=== PATIENT | female | born 1990 | race Caucasian/White ===

== ENCOUNTER 2019-11-11 16:33 | Emergency (ER) | payer MEDICAID ==
[~2019-11-11] VITALS: Ht 160 cm; Wt 81.0 kg
[~2019-11-11 16:33] MED LIST: DIPH25TA89 PO; GENT5DRO4 EACHEYE; ONDA4TAB6 PO
[2019-11-11 16:39] VITALS: BP 143/89
[2019-11-11 18:24] LABS: URINE HCG NEGATIVE (NEG)
[2019-11-11 18:25] LABS: CLARITY,URINE CLEAR (Clear); COLOR,URINE YELLOW (Yellow); GLUCOSE, URINE NEGATIVE (Neg); KETONES,URINE 15 mg/dl (Neg); LEUKOCYTE ESTERASE ,URINE NEGATIVE (Neg); NITRITES, URINE NEGATIVE (Neg); OCCULT BLOOD,URINE TRACE-LYSED (Neg); PROTEIN,URINE NEGATIVE (Neg); UROBILINOGEN,URINE 0.2 E.U/dL (0.2-1.0)
[2019-11-11 18:31] LABS: BACTERIA,URINE FEW /HPF (Neg); RBC,URINE 0-2 /HPF (0-2); SQUAMOUS EPITHELIAL CELL,UR FEW /LPF (FEW); UA COLLECTION TYPE CLN CATCH MIDSTREAM; WBC,URINE 0-4 /HPF (0-4)
== END 2019-11-11 20:54 | disposition home or self-care (01) ==
LOC: ER 16:33
DX: N93.8 Other specified abnormal uterine and vaginal bleeding (principal); N91.2 Amenorrhea, unspecified
CPT/HCPCS: 36415; 81001; 81025; 84702; 99283

== ENCOUNTER 2020-01-04 06:08 | Emergency (ER) | payer MEDICAID ==
[~2020-01-04] VITALS: Ht 160 cm; Wt 78.6 kg
[2020-01-04 06:09] VITALS: BP 140/44
[2020-01-04] MEDS ORDERED: CEPH500C5 PO (06:43)
== END 2020-01-04 06:48 | disposition home or self-care (01) ==
LOC: ER 06:08
DX: O26.891 Other specified pregnancy related conditions, first trimester (principal); T16.2XXA Foreign body in left ear, initial encounter; F41.9 Anxiety disorder, unspecified; Z79.2 Long term (current) use of antibiotics; Z79.899 Other long term (current) drug therapy; Z3A.11 11 weeks gestation of pregnancy; X58.XXXA Exposure to other specified factors, initial encounter; Y93.89 Activity, other specified; Y92.89 Other specified places as the place of occurrence of the external cause; Y99.8 Other external cause status
CPT/HCPCS: 99283; 99284

== ENCOUNTER 2025-06-02 11:30 | Outpatient (CLI) | payer MEDICAID ==
[~2025-06-02 11:30] MED LIST changes: +GEN0.3OS EACHEYE; -GENT5DRO4 EACHEYE
--- NOTE | 2025-06-02 17:21 | [facility] CONSULT REPORT ---
[facility] Procedure Note [facility] Procedure Note Consult [facility] Note # Demographics Type of EEG Read: - Routine EEG - video Patient Location: Outpatient First Name: KIKE Last Name: TODD Date of : 1990 Age: 34 Gender: Female Facility: [facility] Time of Initial Page (Waterproof ): 06/02/2025 12:41 Time of Return Call (Waterproof Time): 06/02/2025 12:42 # EEG Interpretation Start Time of EEG Read (Waterproof ): 06/02/2025 13:04 Stop Time of EEG Read (Waterproof ): 06/02/2025 13:25 Duration: 0h 21m Technical Details: - The EEG electrodes were placed using the standard International 10-20 system of electrode placement. Video and an accessory EKG lead were used during the course of this study. - This study was recorded using the [employer] EEG software Indication: Possible seizure # Description Photic Stimulation: NOT Performed Hyperventilation: NOT performed Phases Captured: - awake Symmetry: symmetric Posterior Dominant Rhythm: The record is continuous, of normal amplitude and bilaterally symmetrical. There is a well-developed posterior dominant rhythm at 9-10Hz. There is a moderate amount of diffuse low amplitude 15-25 Hz beta activity and an appropriate amount of 4-7 Hz theta activity during wakefulness. No significant <4 Hz delta activity is present during wakefulness. With drowsiness, there is attenuation of the background alpha activity and a shift to slower frequencies. Amplitude: normal Reactivity: yes Variability: yes Continuity: continuous EKG: NSR # Abnormalities Stimulation: - photic stimulation does NOT cause abnormalities - hyperventilation does NOT cause abnormalities Epileptiform Abnormalities: - NOT present Focal Slowing: no Seizure: - NOT present No push button events # Impression Impression: normal # Clinical Correlation Clinical Correlation: A normal EEG does not exclude nor support the diagnosis of epilepsy. Additional Comments: clinical correlation is recommended # Demographics First Name: KIKE Last Name: TODD Facility: [facility] SHANT STARR MD Jun 02, 2025 17:21
== END 2025-06-02 23:59 | disposition home or self-care (01) ==
LOC: RAD 11:30
PROVIDERS: ATTEND Family Medicine
DX: R56.9 Unspecified convulsions (principal)
CPT/HCPCS: 95816

== ENCOUNTER 2025-08-10 15:12 | Emergency (ER) | payer MEDICAID ==
[~2025-08-10] VITALS: Ht 160 cm; Wt 59.5 kg
--- NOTE | 2025-08-10 15:33 | Physician Documentation ---
Addendum CHIEF COMPLAINT/HPI: The patient is a 34-year-old female who presents with suicidal ideations. She does not have a definite plan but has fantasizing various possibilities. She takes fluvoxamine and naltrexone for OCD, lamotrigine for seizures and tirzepatide for weight loss. REVIEW OF SYSTEMS: Constitutional: Denies chills, fatigue, fever, weight gain or weight loss. HEENT: Denies hearing loss, sinus pressure or visual changes. Respiratory: Denies cough, shortness of breath or wheezing. Cardiovascular: Denies chest pain, pain while walking (claudication), edema or palpitations. Gastrointestinal: Denies abdominal pain, blood in stool, constipation, diarrhea, heartburn, loss of appetite, nausea or vomiting. Genitourinary: Denies painful urination (dysuria), excessive amount of urine (polyuria) or urinary frequency. Metabolic/Endocrine: Denies cold intolerance, heat intolerance, excessive thirst (polydipsia) or excessive hunger (polyphagia). Neurological: Denies dizziness, extremity numbness, extremity weakness, headaches, seizures or tremors. Psychiatric: Patient does suffer from anxiety and depression. Integumentary: Denies breast discharge, breast lump, hives, mole change(s), rash or skin lesion. Musculoskeletal: Denies back pain, joint pain, joint swelling or neck pain. Hematologic: Denies easily bleeding, easily bruises, lymphedema or issues with blood clots. Immunologic: Denies food allergies or seasonal allergies. PHYSICAL EXAMINATION: Vitals and nursing note reviewed. Constitutional: General: Patient is awake, alert, oriented x 4 in no acute distress and well appearing. Speech is clear and lucid. Appearance: Normal appearance. Patient is not ill-appearing, toxic-appearing or diaphoretic. HENT: Head: Normocephalic and atraumatic. Mouth: Mucous membranes are moist. Pharynx: Oropharynx is clear. Eyes: General: No scleral icterus. Extraocular Movements: Extraocular movements intact. Pupils: Pupils are equal, round, and reactive to light. Neck: Supple, no Kernig or Brudzinski sign. Cardiovascular: Rate and Rhythm: Normal rate and regular rhythm. Heart sounds: No murmur heard. Pulmonary: Effort: No respiratory distress. Breath sounds: No wheezing, rhonchi or rales. Abdominal: General: There is no distension. Palpations: There is no fluid wave, hepatomegaly or mass. Tenderness: There is no abdominal tenderness. There is no guarding. Musculoskeletal: General: No swelling or deformity. Skin: Coloration: Skin is not jaundiced. Findings: No erythema or rash. Neurological: Mental Status: Patient is alert. MEDICAL DECISION MAKING: This 34-year-old female presents with suicidal ideations. Departure Disposition: 30 STILL A PATIENT Impression: Primary Impression: Suicidal ideation Condition: Stable Additional Instructions: Transfer orders for [facility]: At this time there is no evidence of an emergent medical condition that would preclude (admission/transfer) to a psychiatric unit via [facility] protocol for further psychiatric, as well as medical evaluation and treatment. At this time I have no reason to believe that transfer via [facility] protocol would have serious medical compromise in the patient's health. MAHNAZ THOMPSON MD Aug 10, 2025 15:33
[2025-08-10] MEDS ORDERED: LAMO100T65 PO (15:49)
[2025-08-10] MEDS ORDERED: FLUV25TA9 PO (15:50)
[2025-08-10] MEDS ORDERED: TIRZ7.5P3 SUBCUT (15:50)
[2025-08-10] MEDS ORDERED: NALT380S2 IM (15:53)
[2025-08-10 15:55] LABS: LEUKOCYTE ESTERASE ,URINE NEGATIVE (Neg); NITRITES, URINE NEGATIVE (Neg); OCCULT BLOOD,URINE MODERATE (Neg); URINE HCG NEGATIVE (NEG)
[2025-08-10 16:02] LABS: UA COLLECTION TYPE CLN CATCH MIDSTREAM
[2025-08-10 16:04] LABS: MUCUS STRANDS FEW /LPF (Neg); SQUAMOUS EPITHELIAL CELL,UR FEW /LPF (FEW)
[2025-08-10 16:05] LABS: MEAN PLATELET VOLUME 8.5 FL (7.4-10.4); RED CELL DISTRIBUTION WIDTH 12.9 % (11.5-14.5)
[2025-08-10 16:09] LABS: URINE AMPHETAMINE SCREEN NEGATIVE (Neg); URINE BARBITUATE SCREEN NEGATIVE (Neg); URINE BENZODIAZEPINES SCREEN NEGATIVE (Neg); URINE CANNABINOID SCREEN POSITIVE (Neg); URINE COCAINE SCREEN NEGATIVE (Neg); URINE METHADONE SCREEN NEGATIVE (Neg); URINE OPIATE SCREEN NEGATIVE (Neg); URINE PHENCYCLIDINE SCREEN NEGATIVE (Neg)
[2025-08-10 16:29] LABS: CREATININE 0.68 MG/DL (0.40-0.90); TOTAL CARBON DIOXIDE 25.1 MMOL/L (24-32); eCRCL 96 ML/MIN; eGFR > 90 ML/MIN
[2025-08-10] MEDS: TIRZEPATIDE 7.5 MG SQ SCH (16:40)
[2025-08-10 16:42] LABS: ETHANOL < 10 MG/DL (<10)
[2025-08-10 19:38] LABS: LEUKOCYTE ESTERASE ,URINE NEGATIVE (Neg); NITRITES, URINE NEGATIVE (Neg); OCCULT BLOOD,URINE NEGATIVE (Neg)
[2025-08-10 19:47] LABS: UA COLLECTION TYPE NON-SPECIFIED
[2025-08-10 20:00] VITALS: TEMP 97.8
[2025-08-11] MEDS: fluvoxamine 25 MG tablet PO SCH ×2 (09:24→09:58)
[2025-08-11] MEDS ORDERED: FLUV50TA10 PO (09:53)
[2025-08-11 10:39] VITALS: BP 121/87; PULSE 80; RESP 16; O2SAT 99
== END 2025-08-11 10:41 | disposition home or self-care (01) ==
LOC: ER 15:13
DX: R45.851 Suicidal ideations (principal); Z20.822 Contact with and (suspected) exposure to COVID-19; Z79.899 Other long term (current) drug therapy
CPT/HCPCS: 36415; 80048; 80305; 80320; 81001; 81003; 81025; 84443; 85025; 87811; 99285